=== PATIENT | male | born 1955 | race Caucasian/White ===

== ENCOUNTER → 2023-05-16 | Outpatient (CLI) | payer MEDICARE, BC ==
--- NOTE | 2023-05-23 12:43 | MR ---
EXAMINATION TYPE: MR knee LT wo con DATE OF EXAM: 05/16/2023 COMPARISON: Outside Left knee x-ray May 15, 2023 HISTORY: Lt knee medial pain for one month TECHNIQUE: Multiplanar, multisequence images of the knee is performed without IV contrast. FINDINGS: MEDIAL MENISCUS: Horizontal triangular shaped increased signal posterior horn medial meniscus likely encroaches inferior articular surface. LATERAL MENISCUS: Horizontal increased signal anterior and posterior horn does not definitively exten d to articular surface. CRUCIATE LIGAMENTS: The anterior and posterior cruciate ligaments are intact and unremarkable. COLLATERAL LIGAMENTS: The medial collateral ligament and lateral collateral ligament complex are inta ct. Fluid signal surrounds medial collateral ligament. EXTENSOR MECHANISM: Visualized quadriceps and patellar tendons are intact. EFFUSION: Small to moderate size suprapatellar joint effusion. POPLITEAL CYST: Moderate sized septated popliteal/tirado cyst measuring 5.5 cm long axis sagittal imag e 27. TRICOMPARTMENT SPACES: Mild to moderate tricompartment joint space loss without significant spurring. CARTILAGE: Chondromalacia patella most prominent along the superior medial aspect of the patella sagi ttal image 19 for reference BONE MARROW SIGNAL: Some increased T2 signal posterior patellar pole at site of most prominent cartil aginous loss superiorly. OTHER: No additional significant abnormality is appreciated. IMPRESSION: 1. 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 2. At least intrasubstance suspected full-thickness tear posterior horn medial meniscus. 3. Intrasubstance tears in the anterior and posterior horns of lateral meniscus. 4. Small to moderate sized suprapatellar joint effusion. 5. Moderate-sized septated popliteal cyst. 6. Mild MCL sprain injury.
== END | disposition home or self-care (01) ==
LOC: RADMRIMAIN 08:29
PROVIDERS: ATTEND Orthopaedic Surgery
DX: S83.242A Other tear of medial meniscus, current injury, left knee, initial encounter (principal); S83.412A Sprain of medial collateral ligament of left knee, initial encounter; M17.12 Unilateral primary osteoarthritis, left knee; M71.22 Synovial cyst of popliteal space [Baker], left knee; X58.XXXA Exposure to other specified factors, initial encounter

== ENCOUNTER → 2024-05-07 | Outpatient (CLI) | payer MEDICARE, BC ==
--- NOTE | 2024-05-07 10:07 | CA ---
Transthoracic Echo Report Name: Rocky Coelho Age: 69 Gender: M : 1955 Exam Date: 05/07/2024 08:38 Exam Location: [facility] Ht (in): 68 Wt (lb): 169 Ordering Physician: Rodrigo Alexander DO Attending/Referring Phys: Rodrigo Alexander DO Lifestyle Director Abi Chiu RDCS Procedure CPT: Indications: R06.9 UNSPECIFIED ABNORMALITIES OF BREATHING Cardiac Hx: Technical Quality: Good Contrast 1: Total Dose (mL): Contrast 2: Total Dose (mL): MEASUREMENTS (Male / Female) Normal Values 2D ECHO LV Diastolic Diameter PLAX 4.2 cm 4.2 - 5.9 / 3.9 - 5.3 cm LV Systolic Diameter PLAX 3.1 cm IVS Diastolic Thickness 0.8 cm 0.6 - 1.0 / 0.6 - 0.9 cm LVPW Diastolic Thickness 0.9 cm 0.6 - 1.0 / 0.6 - 0.9 cm LV Relative Wall Thickness 0.4 RV Internal Dim ED PLAX 2.9 cm LVOT Diameter 1.8 cm LA Systolic Diameter LX 2.9 cm 3.0 - 4.0 / 2.7 - 3.8 cm LV Diastolic Volume MOD BP 95.0 cm??? 67 - 155 / 56 - 104 cm??? LV Systolic Volume MOD BP 47.5 cm??? 22 - 58 / 19 - 49 cm??? LV Ejection Fraction MOD BP 50.1 % >= 55 % LV Cardiac Index MOD BP 1898.7 cm???/min???m??? LV Diastolic Volume MOD 4C 96.3 cm??? LV Systolic Volume MOD 4C 48.3 cm??? LV Ejection Fraction MOD 4C 49.9 % LV Cardiac Index MOD 4C 1919.0 cm???/min???m??? LV Diastolic Length 4C 8.4 cm LV Systolic Length 4C 7.0 cm LV Diastolic Volume MOD 2C 92.5 cm??? LV Systolic Volume MOD 2C 44.3 cm??? LV Ejection Fraction MOD 2C 52.1 % LV Cardiac Index MOD 2C 1924.2 cm???/min???m??? LV Diastolic Length 2C 8.5 cm LV Systolic Length 2C 6.6 cm LA Volume 36.2 cm??? 18 - 58 / 22 - 52 cm??? LA Volume Index 18.7 cm???/m??? 16 - 28 cm???/m??? DOPPLER AV Peak Velocity 106.4 cm/s AV Peak Gradient 4.5 mmHg AV Mean Velocity 80.5 cm/s AV Mean Gradient 2.8 mmHg AV Velocity Time Integral 21.1 cm LVOT Peak Velocity 95.1 cm/s LVOT Peak Gradient 3.6 mmHg LVOT Velocity Time Integral 17.3 cm LVOT Stroke Volume 44.4 cm??? LVOT Stroke Volume Index 23.3 ml/m??? LVOT Cardiac Index 1771.4 cm???/min???m??? AV Area Cont Eq vti 2.1 cm??? AV Area Cont Eq pk 2.3 cm??? MV Area PHT 2.9 cm??? Mitral E Point Velocity 40.3 cm/s Mitral A Point Velocity 48.8 cm/s Mitral E to A Ratio 0.8 MV Deceleration Time 260.0 ms TR Peak Velocity 221.3 cm/s TR Peak Gradient 19.6 mmHg Right Atrial Pressure 5.0 mmHg Pulmonary Artery Systolic Pressu 24.6 mmHg Right Ventricular Systolic Press 24.6 mmHg FINDINGS Left Ventricle Left ventricular ejection fraction is estimated at 50%. Mildly decreased left ventricular ejection fraction. Normal Left ventricular size, wall thickness, systolic function with no obvious regional wall motion abnormalities. Right Ventricle Normal right ventricular size and function. Right ventricular systolic pressure within normal limits. Right Atrium Normal right atrial size. Left Atrium Normal left atrial size. Mitral Valve Mitral valve thickened. No mitral stenosis. Trace mitral regurgitation. Aortic Valve Trileaflet aortic valve. No aortic stenosis. No aortic regurgitation. Tricuspid Valve Structurally normal tricuspid valve. No tricuspid stenosis. Trace tricuspid regurgitation. Pulmonic Valve Structurally normal pulmonic valve. No pulmonic stenosis. Trace pulmonic regurgitation. Pericardium No pericardial effusion. No pleural effusion. Aorta Normal size aortic root and proximal ascending aorta. CONCLUSIONS Normal LV size fair systolic function. No significant abnormality on the Doppler exam. No pericardial effusion Previewed by: Dr. Shane Gilliland MD (Electronically Signed) Final Date: 07 May 2024 10:06
== END | disposition home or self-care (01) ==
LOC: RADECHMAIN 08:28
PROVIDERS: ATTEND Family Medicine
DX: I07.1 Rheumatic tricuspid insufficiency (principal); R06.09 Other forms of dyspnea
CPT/HCPCS: 93306

== ENCOUNTER → 2024-05-15 | Outpatient (CLI) | payer MEDICARE, BC ==
--- NOTE | 2024-05-15 10:29 | CA ---
Exercise Nuclear Stress Test Report Name: Rocky Coelho Exam Date: 05/15/2024 09:27 Exam Location: [facility] Ht (in): 68 Wt (lb): 169 BSA: 1.90 Ordering Phys: Rodrigo Alexander DO Referring Phys: Rodrigo Alexander DO Technologist: OLIVIA GONZALEZ Age: 69 Gender: M : 1955 Procedure CPT: Indications: R06.09 Dyspnea ICD-10 Codes: Patient History: Medications: NONE,,, Meds past 24 hrs: Pretest Chest Pain: STRESS TEST Brandt Protocol Exercise Duration (min:sec): 10:[address] Depressions (mm): Angina Score: Romero Score: Resting HR (bpm): 83 Peak HR (bpm): 143 Resting BP (mmHg): 126 / 73 Peak BP (mmHg): 170 / 68 MPHR: 152 Target HR: 129 % MPHR: 94 METS: 12.1 Total Dose: Peak Dose: Atropine: Double Product: 31313 BP Response: Stress Termination: TARGET HR REACHED/MAX EXERTION Stress Symptoms: NO SYMPTOMS Stress Summary: ECG ANALYSIS Resting ECG: The normal sinus rhythm normal axis normal intervals Stress ECG: Patient exercised on Brandt protocol for 10 minutes achieving 85% of predicted maximal heart rate without chest pain or diagnostic ST segment depression CONCLUSIONS Good exercise tolerance Negative stress test by EKG criteria Dr. Sabas Medeiros MD (Electronically Signed) Final Date: 15 May 2024 10:28
--- NOTE | 2024-05-15 11:11 | NM ---
EXAMINATION TYPE: NM stress lexiscan cardiolite DATE OF EXAM: 05/15/2024 COMPARISON: NONE CLINICAL INDICATION: Male, 69 years old with history of R06.09 dyspnea; family history of coronary ar brenda disease. TECHNIQUE: After the intravenous administration of 9.9 mCi Tc 99m Sestamibi - Cardiolite resting SPE CT images acquired 75 minutes post injection. The patient received 0.4mg Lexiscan, 26.5 mCi Tc 99m Sestamibi - Stress images obtained [address] injection FINDINGS: Review of stress and rest SPECT images demonstrates no distinct perfusion abnormality. Gated analysi s shows normal wall motion with an estimated left ventricular ejection fraction of 61 %. IMPRESSION: No scintigraphic evidence for reversible ischemia. [facility], , 05/15/2024 11:09 AM
== END | disposition home or self-care (01) ==
LOC: RADNMMAIN 07:33
PROVIDERS: ATTEND Family Medicine
DX: R06.09 Other forms of dyspnea (principal); Z82.49 Family history of ischemic heart disease and other diseases of the circulatory system
CPT/HCPCS: 93017; 78452; A9500